=== PATIENT | female | born 1975 ===

== ENCOUNTER → 2023-12-19 17:59 | Outpatient (REF) | payer BC, SELFPAY | LOC: CLAB 17:59 | PROVIDERS: ATTENDING PHYSICIAN Otolaryngology Facial Plastic Surgery; FAMILY PHYSICIAN Family Medicine | DX: J32.9 Chronic sinusitis, unspecified (principal) | CPT/HCPCS: 88304; 88311 ==

== ENCOUNTER → 2025-06-24 09:09 | Outpatient (REF) | payer BC, SELFPAY | LOC: HWRCS 09:09 | PROVIDERS: ATTENDING PHYSICIAN Internal Medicine; FAMILY PHYSICIAN Family Medicine | DX: R07.9 Chest pain, unspecified (principal) | CPT/HCPCS: 93306 ==

== ENCOUNTER → 2025-06-28 14:20 | Outpatient (REF) | payer BC, SELFPAY | LOC: RCS 14:20 | PROVIDERS: ATTENDING PHYSICIAN Internal Medicine; FAMILY PHYSICIAN Family Medicine | DX: R07.9 Chest pain, unspecified (principal) | CPT/HCPCS: 93017; 93350 ==